=== PATIENT | female | born 1985 | race Caucasian/White ===

== ENCOUNTER 2022-12-08 14:43 | Inpatient (IN) | payer OTHER ==
[2022-12-08 15:25] VITALS: BMI 36.7
[2022-12-08 15:54] LABS: Fetal Membranes Rupture RUPTURE DETECTED (No Rupture)
[2022-12-08] MEDS ORDERED: Promethazine HCl 25 MG/ML VIAL IM PRN ×3 (16:35→21:49)
[2022-12-08] MEDS ORDERED: Methylergonovine 0.2 MG/ML VIAL IM PRN ×2 (16:35→21:49)
[2022-12-08] MEDS ORDERED: Fentanyl 100 MCG/2 ML VIAL SLOW IVP PRN ×2 (16:35→18:38)
[2022-12-08] MEDS ORDERED: Diphenoxylate HCl/Atropine Tablet PO PRN ×2 (16:35)
[2022-12-08] MEDS ORDERED: Butorphanol Tartrate 1 MG/ML VIAL SLOW IVP PRN (16:35)
[2022-12-08] MEDS ORDERED: Bicitra 30 ML UDCUP PO PRN (16:35)
[2022-12-08] MEDS ORDERED: Famotidine/PF 20 mg/2ml Vial SLOW IVP PRN (16:35)
[2022-12-08] MEDS ORDERED: Misoprostol 200 MCG TAB PR PRN ×2 (16:35→21:49)
[2022-12-08] MEDS ORDERED: Tranexamic Acid 1,000 MG/10 ML VIAL IVP PRN (16:35)
[2022-12-08] MEDS ORDERED: Carboprost 250 MCG/ML AMP IM PRN (16:35)
[2022-12-08] MEDS ORDERED: hydrALAZINE 20 MG/ML VIAL SLOW IVP PRN ×2 (16:35→21:49)
[2022-12-08] MEDS ORDERED: Azithromycin 500 MG in Sodium Chloride 0.9% 250 ML 250 ML IVPB SCH (16:45)
[2022-12-08] MEDS ORDERED: CEFAZOLIN 2 GM in Sodium Chloride 0.9% 100 ML IVPB SCH (16:45)
[2022-12-08] MEDS ORDERED: Lactated Ringer's 1,000 ML IV SCH (16:45)
[2022-12-08] MEDS ORDERED: NS w/ Oxytocin 30 units 500 ML IV SCH ×2 (16:45→21:49)
[2022-12-08 17:04] LABS: Hemoglobin 13.2 g/dL (12.0-15.5); Mean Corpuscular HGB CONC 33.6 g/dL (32.0-36.0); Mean Corpuscular Hemoglobin 29.6 pg (27.0-33.0); Mean Corpuscular Volume 88.1 fl (81.6-98.3); Mean Platelet Volume 11.8 fl (7.4-10.4); Platelet Count 275 10x3/uL (150-450); RBC Distribution Width 13.8 % (11.5-14.5); Red Blood Cell (RBC) Count 4.46 10x6/uL (3.90-5.03); White Blood Cell (WBC) Count 13.3 10x3/uL (3.5-10.5)
[2022-12-08] MEDS ORDERED: Morphine PF 10 MG/10 ML VIAL ONE (17:07)
[2022-12-08] MEDS ORDERED: Oxytocin 10 UNITS/ML VIAL ONE (17:08)
[2022-12-08] MEDS ORDERED: Phenylephrine 40 MG/NS 250 ML 250 ML ONE (17:08)
[2022-12-08] MEDS ORDERED: Fentanyl 100 MCG/2 ML VIAL ONE (17:08)
[2022-12-08] MEDS ORDERED: Dexamethasone 4 mg/ml Vial ONE (17:08)
[2022-12-08] MEDS ORDERED: Ketorolac Tromethamine 30 MG/ML VIAL ONE (17:08)
[2022-12-08] MEDS ORDERED: Ondansetron PF 4 MG/2 ML Vial ONE (17:08)
[2022-12-08 17:38] LABS: HBSAg Index 0.12 S/CO (0-0.99); Hep B Surf Ag - L&D Non-Reactive S/CO (NonReactive)
[2022-12-08 17:40] LABS: Syphilis Antibody Nonreactive (Nonreactive); Syphilis Antibody Index 0.11 S/CO (<1.00 Non-Reactive)
[2022-12-08] MEDS ORDERED: diphenhydrAMINE 50 MG/ML VIAL ONE (18:23)
[2022-12-08] MEDS ORDERED: Ondansetron PF 4 MG/2 ML Vial IVP PRN (18:38)
[2022-12-08] MEDS ORDERED: Ondansetron HCl/PF 4 MG/2 ML Vial IVP PRN (18:38)
[2022-12-08] MEDS ORDERED: diphenhydrAMINE 50 MG/ML VIAL IVP PRN (18:38)
[2022-12-08] MEDS ORDERED: Meperidine HCl/PF 25 MG/ML VIAL SLOW IVP PRN (18:38)
[2022-12-08] MEDS ORDERED: Naloxone HCl 0.4 mg/ml Vial IV PRN (18:38)
[2022-12-08] MEDS ORDERED: Promethazine HCl 25 MG SUPP PR PRN (18:38)
[2022-12-08] MEDS ORDERED: Moisturizing Cream (Eucerin) 113 GM JAR TOP PRN (18:38)
[2022-12-08] MEDS ORDERED: Naloxone HCl 0.4 mg/ml Vial IVP PRN ×2 (18:38)
[2022-12-08] MEDS ORDERED: Communication Order-Pharmacy FS SCH (18:45)
[2022-12-08] MEDS ORDERED: Bisacodyl 10 MG SUPP PR PRN (21:49)
[2022-12-08] MEDS ORDERED: Simethicone Chewable 80 MG TAB PO PRN (21:49)
[2022-12-08] MEDS ORDERED: diphenhydrAMINE 25 MG CAP PO PRN (21:49)
[2022-12-08] MEDS ORDERED: Measles/Mumps/Rubella 10 MCG/0.5 ML VIAL SC ONE (21:49)
[2022-12-08] MEDS ORDERED: Lanolin Ointment 7 GM TUBE TOP PRN (21:49)
[2022-12-08] MEDS ORDERED: Boostrix 0.5 ML (Tdap) VIAL (>/=7 yrs of age) IM ONE (21:49)
[2022-12-08] MEDS ORDERED: Varicella virus, LIVE 0.5 ML VIAL SC ONE (21:49)
[2022-12-08] MEDS ORDERED: Docusate 100 MG CAP PO SCH (22:15)
[2022-12-08] MEDS ORDERED: Ferrous Sulfate 325 MG TAB PO SCH (22:15)
[2022-12-09] MEDS: Ketorolac Tromethamine 30 MG/ML VIAL IVP SCH ×2 (00:57→07:55)
[2022-12-09 03:13] LABS: Hemoglobin 11.8 g/dL (12.0-15.5); Mean Corpuscular HGB CONC 33.6 g/dL (32.0-36.0); Mean Corpuscular Hemoglobin 29.7 pg (27.0-33.0); Mean Corpuscular Volume 88.4 fl (81.6-98.3); Mean Platelet Volume 11.3 fl (7.4-10.4); Platelet Count 235 10x3/uL (150-450); RBC Distribution Width 13.6 % (11.5-14.5); Red Blood Cell (RBC) Count 3.97 10x6/uL (3.90-5.03); White Blood Cell (WBC) Count 18.8 10x3/uL (3.5-10.5)
[2022-12-09] MEDS ORDERED: HYDROcodone/Acetaminophen 5/325 mg Tablet PO PRN ×2 (06:45)
[2022-12-09] MEDS ORDERED: Zolpidem Tartrate 5 MG TAB PO PRN (06:45)
[2022-12-09] MEDS: Ferrous Sulfate 325 MG TAB PO SCH ×2 (07:54→21:16)
[2022-12-09] MEDS ORDERED: Ondansetron ODT 4 MG TAB PO PRN (08:03)
[2022-12-09] MEDS: Prenatal Vitamin 1 TAB PO SCH (08:39)
[2022-12-09] MEDS: Docusate 100 MG CAP PO SCH ×2 (08:39→21:22)
[2022-12-09] MEDS: Ibuprofen 800 MG TAB PO SCH ×2 (08:39→17:05)
[2022-12-09] MEDS: traMADol HCl 50 MG TAB PO PRN ×2 (14:07→21:21)
[2022-12-10] MEDS: Ibuprofen 800 MG TAB PO SCH ×4 (00:01→23:38)
[2022-12-10] MEDS: Docusate 100 MG CAP PO SCH (08:47)
[2022-12-10] MEDS: Ferrous Sulfate 325 MG TAB PO SCH (08:47)
[2022-12-10] MEDS: Prenatal Vitamin 1 TAB PO SCH (08:48)
[2022-12-10] MEDS: traMADol HCl 50 MG TAB PO PRN (12:18)
[2022-12-11] MEDS: traMADol HCl 50 MG TAB PO PRN ×4 (02:09→12:34)
[2022-12-11 08:06] VITALS: BP 138/72; TEMP 97.8
[2022-12-11] MEDS: Prenatal Vitamin 1 TAB PO SCH (08:55)
[2022-12-11] MEDS: Ibuprofen 800 MG TAB PO SCH (08:55)
[2022-12-11] MEDS: Ferrous Sulfate 325 MG TAB PO SCH ×2 (08:55→08:56)
[2022-12-11] MEDS: Docusate 100 MG CAP PO SCH ×2 (08:56→09:21)
== END 2022-12-11 14:25 | disposition home or self-care (01) | DRG 788 ==
LOC: CSHLD/OP 14:43 → CSHLD 16:19 → CSHPP 21:25
PROVIDERS: ADMIT Obstetrics & Gynecology; ATTEND Obstetrics & Gynecology
PROC: 10D00Z1 Extraction of Products of Conception, Low, Open Approach (ICD-10-PCS; principal; 2022-12-08)
DX: O42.02 Full-term premature rupture of membranes, onset of labor within 24 hours of rupture (principal); O34.211 Maternal care for low transverse scar from previous cesarean delivery; Z3A.38 38 weeks gestation of pregnancy; Z37.0 Single live birth; Z88.2 Allergy status to sulfonamides; O99.62 Diseases of the digestive system complicating childbirth; K66.0 Peritoneal adhesions (postprocedural) (postinfection)
CPT/HCPCS: 36415; 51702; 84112; 85027; 86780; 86850; 86900; 86901; 87340; 99285; J0456; J1100; J1200; J1885; J2274; J2405; J2590; J3010; J3490; J7050; S0028